=== PATIENT | female | born 1955 | race Two or more races ===

== ENCOUNTER 2025-04-24 16:27 | Emergency (ER) | payer SELFPAY ==
[~2025-04-24] VITALS: Ht 157.5 cm; Wt 54.5 kg
--- NOTE | 2025-04-24 16:54 | ED.PDOC ---
Musculoskeletal HPI Comments 69y F who presents to the ED via EMS for chief complaint of bilateral lower extremity pain. EMS states pt was at [facility] with sister who called EMS after pt has been having increasing pain with ambulating to her bilateral lower extremities. Pt in the ED, has noted scabbing to bilateral lower extremities. Pt otherwise denies any other associated symptoms. Pt otherwise has noted BP of 146/67 with otherwise stable vitals. Pt has noted history of dementia and schizophrenia. Pt denies any other symptoms. Chief Complaint: Lower Extremity Time Seen by MD: 16:47 Reviewed Notes: Medications, Allergies Allergies: Coded Allergies: NO KNOWN ALLERGIES (Unverified , 04/24/25) Information Source: Patient Mode of Arrival: EMS Location: Bilateral Extremity Location: Leg Past Medical History PAST MEDICAL HISTORY: Schizophrenia Past Medical History (Other): dementia Surgical History: Denies all surgeries COLOR EXPERT History: Denies all COLOR EXPERT Hx Family History Family History: Reviewed,noncontributory to illness Social History Smoker: Non-Smoker Alcohol: Denies ETOH Use Drugs: Denies Drug Use Lives In: Home Constitutional: denies: chills, diaphoresis, fatigue, fever, malaise, sweats, weakness, others EENTM: denies: blurred vision, double vision, ear bleeding, ear discharge, ear drainage, ear pain, ear ringing, eye pain, eye redness, hearing loss, mouth pain, mouth swelling, nasal discharge, nose bleeding, nose congestion, nose pain, photophobia, tearing, throat pain, throat swelling, voice changes, others Respiratory: denies: cough, hemoptysis, orthopnea, SOB at rest, shortness of breath, SOB with excertion, stridor, wheezing, others Cardiovascular: denies: chest pain, dizzy spells, diaphoresis, Dyspnea on exertion, edema, irregular heart beat, left arm pain, lightheadedness, palpitations, PND, syncope, others Gastrointestinal: denies: abdomen distended, abdominal pain, blood streaked bowels, constipated, diarrhea, dysphagia, difficulty swallowing, hematemesis, melena, nausea, poor appetite, poor fluid intake, rectal bleeding, rectal pain, vomiting, others Genitourinary: denies: abnormal vagina bleeding, burning, dyspareunia, dysuria, flank pain, frequency, hematuria, incontinence, pain, , vagina discharge, urgency, others Neurological: denies: dizziness, fainting, headache, left sided numbness, left sided weakness, numbness, paresthesia, pre-existing deficit, right sided numbness, right sided weakness, seizure, speech problems, tingling, tremors, weakness, others Musculoskeletal: denies: back pain, gout, joint pain, joint swelling, muscle pain, muscle stiffness, neck pain, others Integumetry: reports: wounds (bilateral lower extremity); denies: bruises, change in color, change in hair/nails, dryness, laceration, lesions, lumps, rash, others Allergic/Immunocompromised: denies: Difficulty Healing, Frequent Infections, Hives, Itching, others Hematologic/Lymphatic: denies: anemia, blood clots, easy bleeding, easy bruising, swollen glands, others Endocrine: denies: excessive hunger, excessive sweating, excessive thirst, excessive urination, flushing, intolerance to cold, intolerance to heat, unexplained weight gain, unexplained weight loss, others Psychiatric: denies: anxiety, bipolar disorder, depression, hopeless, panic disorder, schizophrenia, sleepless, suicidal, others All Other Systems: Reviewed and Negative Physical Exam General Appearance: No Apparent Distress, Normal HEENT: Normal ENT Inspection, Pharynx Normal, TMs Normal Neck: Full Range of Motion, Non-Tender, Normal, Normal Inspection Respiratory: Chest Non-Tender, Lungs Clear, No Accessory Muscle Use, No Respiratory Distress, Normal Breath Sounds Cardiovascular: No Edema, No JVD, No Murmur, No Gallop, Normal Peripheral Pulses, Regular Rate/Rhythm Breast Exam: Deferred Gastrointestinal: No Organomegaly, Non Tender, No Pulsatile Mass, Normal Bowel Sounds, Soft Genitalia: Deferred Pelvic: Deferred Rectal: Deferred Extremities: Other (BILATERAL LOWER LEGS HAVE NOTED EXCORIATIONS) Musculoskeletal : Apperance: Normal Neurologic: Alert, 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 Was a procedure done?: No Differential Diagnosis EXT Differential Diagnosis: Cellulitis, Deep Vein Thrombosis, DJD, Rheumatoid, Arthritis X-Ray, Labs, Meds, VS Vital Signs Date Time Temp Pulse Resp B/P (MAP) Pulse Ox O2 Delivery O2 Flow Rate FiO2 04/24/25 16:34 98.5 99 12 146/67 97 98.5 Lab Test 04/24/25 16:53 Range/Units White Blood Count 5.1 4.4-10.8 10^3/uL Red Blood Count 4.33 4.0-5.20 10^6/uL Hemoglobin 12.4 12.2-16.2 g/dL Hematocrit 37.4 36.0-46.0 % Mean Corpuscular Volume 86.3 80.0-100.0 fL Mean Corpuscular Hemoglobin 28.6 28.0-32.0 pg Mean Corpuscular Hemoglobin Concent 33.1 32.0-36.0 g/dL Red Cell Distribution Width 14.7 H 11.8-14.3 % Platelet Count 327 140-450 10^3/uL Mean Platelet Volume 7.9 6.9-10.8 fL Neutrophils (%) (Auto) 37.0-80.0 % Lymphocytes (%) (Auto) 10.0-50.0 % Monocytes (%) (Auto) 0.0-12.0 % Eosinophils (%) (Auto) 0.0-7.0 % Basophils (%) (Auto) 0.0-2.0 % Neutrophils # (Auto) 1.6-8.6 10 ^3/uL Lymphocytes # (Auto) 0.4-5.4 10 ^3/uL Monocytes # (Auto) 0-1.3 10 ^3/uL Differential Total Cells Counted 100.0 100 Neutrophils % (Manual) 37 37.0-80.0 Band Neutrophils % (Manual) 1 Lymphocytes % (Manual) 41 10.0-50.0 Monocytes % (Manual) 5 0-12 Eosinophils % (Manual) 16 H 0-7 Basophils % (Manual) 0 0.0-2.0 Metamyelocytes % (manual) 0 Myelocytes % (Manual) 0 Promyelocytes % (Manual) 0 Blast Cells % (Manual) 0 Reactive Lymphocytes 0 Platelet Estimate Adequate Sodium Level 132 L 136-145 mmol/L Potassium Level 4.4 3.5-5.1 mmol/L Chloride Level 98 98-107 mmol/L Carbon Dioxide Level 23 20-31 mmol/L Anion Gap 11 5-15 Blood Urea Nitrogen 10 9-23 mg/dL Creatinine 0.61 0.550-1.02 mg/dL Glomerular Filtration Rate Calc 97 >90 mL/min BUN/Creatinine Ratio 16.4 10.0-20.0 Serum Glucose 80 74-106 mg/dL Calcium Level 9.7 8.7-10.4 mg/dL X-Ray, Labs, Meds, VS Comment Imaging was reviewed by this provider, there is no obvious pathological or acute disease process. Pending radiology review Labs were reviewed by this provider, no abnormalities Vital signs reviewed by this provider, clinically stable Time of 1ST Reevaluation: 17:20 Reevaluation 1ST: Unchanged Patient Education/Counseling: Diagnosis, Treatment, Need For Follow Up (Follow up with PCP in the next 2-3 days. Return to the emergency department if symptoms worsen.) Family Education/Counseling: No Family Present Departure 1 Departure Time of Disposition: 20:12 Impression: Primary Impression: Foot pain, bilateral Additional Impression: Cellulitis Qualified Codes: L03.119 - Cellulitis of unspecified part of limb Disposition: HOME / SELF CARE / HOMELESS Condition: Stable e-Prescriptions Sulfamethoxazole W/Trimethopri (Bactrim Ds Tablet) 1 Tab Tb 1 TAB PO BID for 10 Days, #20 TAB Prov: TAJ BENITEZ 04/24/25 Discharged With: Self Critical Care Note Critical Care Time?: No Stability Stability form required: No Heart Score Heart Score: Heart Score Response (Comments) Value History N/A 0 EKG N/A 0 Age N/A 0 Risk Factors N/A 0 Troponin N/A 0 Total 0 I personally scribed for TAJ BENITEZ ([place]) on 04/24/25 at 16:54. Electronically submitted by Gino MORATAYA). TAJ BENITEZ Apr 24, 2025 16:54
[2025-04-24 17:03] LABS: Hematocrit 37.4 % (36.0-46.0); Hemoglobin 12.4 g/dL (12.2-16.2); Mean Corpuscular Hemoglobin 28.6 pg (28.0-32.0); Mean Corpuscular Volume 86.3 fL (80.0-100.0)
[2025-04-24 17:13] LABS: Anion Gap 11 (5-15); Carbon Dioxide 23 mmol/L (20-31); Potassium 4.4 mmol/L (3.5-5.1)
[2025-04-24 17:14] LABS: Calcium 9.7 mg/dL (8.7-10.4)
[2025-04-24 17:15] LABS: Chloride 98 mmol/L (98-107); Sodium 132 mmol/L (136-145)
[2025-04-24 17:19] LABS: BUN/Creatinine Ratio 16.4 (10.0-20.0); Blood Urea Nitrogen 10 mg/dL (9-23); Glucose 80 mg/dL (74-106)
[2025-04-24 19:08] LABS: Total Cells Counted 100.0 (100)
[2025-04-24] MEDS ORDERED: BACDST PO (20:14)
[2025-04-25] MEDS: HYDROcodone-ACET 5/325MG TAB PO ONE
[2025-04-25 06:18] VITALS: PULSE 66; RESP 14; O2SAT 95
[2025-04-25 08:00] VITALS: BP 152/76; PULSE 88; RESP 18; TEMP 97.8; O2SAT 97
== END 2025-04-25 12:40 | disposition home or self-care (01) ==
LOC: EDBD 16:27 → ER 16:27
DX: L03.116 Cellulitis of left lower limb (principal); L03.115 Cellulitis of right lower limb; M79.672 Pain in left foot; M79.671 Pain in right foot; Z79.899 Other long term (current) drug therapy
CPT/HCPCS: 36415; 80048; 85007; 85027